=== PATIENT | female | born 1965 ===

== ENCOUNTER 2018-01-04 07:14 | Day surgery (SDC) | payer OTHER ==
[2018-01-04 08:00] VITALS: BMI 24.1
[2018-01-04] MEDS ORDERED: Lactated Ringer's 1,000 ML IV ONE ×2 (10:30→10:55)
[2018-01-04] MEDS ORDERED: Propofol 10 mg/ml Inj (20 ML) ONE ×2 (10:31)
[2018-01-04 11:48] VITALS: TEMP 97.6
[2018-01-04 14:51] VITALS: BP 129/73; PULSE 60; RESP 13; O2SAT 98
== END 2018-01-04 11:55 | disposition home or self-care (01) ==
LOC: C.ENDO 07:14
PROVIDERS: ATTEND Internal Medicine
DX: K92.1 Melena (principal); K64.4 Residual hemorrhoidal skin tags; K64.8 Other hemorrhoids; Z79.899 Other long term (current) drug therapy
CPT/HCPCS: 45378; J2704; J7120